=== PATIENT | male | born 1940 | race Caucasian/White ===

== ENCOUNTER 2017-10-06 05:24 | Inpatient (IN) | payer MEDICARE, BC ==
[2017-09-26 10:56] LABS: BASOPHILS % (AUTO) 0.5 % (0-1); EOSINOPHILS # (AUTO) 0.1 X10'3 (0-0.9); EOSINOPHILS % (AUTO) 1.2 % (0-6); LYMPHOCYTES # (AUTO) 0.9 X10'3 (1.1-4.8); LYMPHOCYTES % (AUTO) 20.6 % (21-51); MEAN CORPUSCULAR HEMOGLOBIN 30.7 PG (27.0-31.0); MEAN CORPUSCULAR HGB CONC 34.4 % (33.0-36.5); MEAN CORPUSCULAR VOLUME 89.2 FL (78-98); MEAN PLATELET VOLUME 8.1 FL (7.4-10.4); MONOCYTES # (AUTO) 0.2 X10'3 (0-0.9); MONOCYTES % (AUTO) 5.3 % (2-12); NEUTROPHILS # (AUTO) 3.2 X10'3 (1.8-7.7); NEUTROPHILS % (AUTO) 72.4 % (42-75); PRE OP HEMATOCRIT 43.1 % (42.0-52.0); PRE OP HEMOGLOBIN 14.8 g/dL (14.0-17.9); PRE OP PLATELET COUNT 189 X10'3 (140-440); RED BLOOD COUNT 4.83 X10'6 (4.70-6.10); RED CELL DISTRIBUTION WIDTH 12.4 % (11.5-14.5)
[2017-09-26 10:58] LABS: CLARITY,URINE CLEAR (Clear); COLOR,URINE YELLOW (Yellow); GLUCOSE, URINE NEGATIVE (Neg); KETONES,URINE NEGATIVE (Neg); LEUKOCYTE ESTERASE ,URINE NEGATIVE (Neg); NITRITES, URINE NEGATIVE (Neg); OCCULT BLOOD,URINE NEGATIVE (Neg); PROTEIN,URINE NEGATIVE (Neg); UA COLLECTION TYPE NON-SPECIFIED; UROBILINOGEN,URINE 0.2 E.U/dL (0.2-1.0)
[2017-09-26 11:04] LABS: PRE OP PROTIME 10.3 SECONDS (9.0-12.0)
[2017-09-26 11:08] LABS: ALBUMIN 3.8 G/DL (3.4-5.0); ALBUMIN/GLOBULIN RATIO 1.3 (1.1-1.5); ALKALINE PHOSPHATASE 67 IU/L (46-116); BLOOD UREA NITROGEN 18 MG/DL (7-18); CHLORIDE 107 MMOL/L (99-107); PRE OP ALT 35 U/L (30-65); PRE OP ANION GAP 9 (8-16); PRE OP AST 20 U/L (10-37); PRE OP BILIRUB, TOTAL 0.7 MG/DL (0.0-1.0); PRE OP GLUCOSE 104 MG/DL (70-104); PRE OP POTASSIUM 4.3 MMOL/L (3.4-5.1); PRE OP SODIUM 144 MMOL/L (135-145); TOTAL CARBON DIOXIDE 28.5 MMOL/L (24-32); TOTAL PROTEIN 6.8 G/DL (6.4-8.2); eGFR 72 ML/MIN
[~2017-10-06] VITALS: Ht 180.3 cm; Wt 81.6 kg
[2017-10-06] VITALS (17 sets, daily range): BP systolic 86–141; BP diastolic 50–80
[~2017-10-06 05:24] MED LIST: ACET-2119 PO; ALFU10TA10 PO; ASPI-1265 PO; CHOL100046 PO; FLUT16SP2 BOTHNARES; MELO-100 PO; ringers solution, lacted 1,000 ML IV SCH
[2017-10-06] MEDS ORDERED: famotidine 20mg tablet PO ONE (05:30)
[2017-10-06] MEDS ORDERED: acetaminophen 325mg tablet PO ONE (05:30)
[2017-10-06] MEDS ORDERED: oxyCODONE SR 10mg (sust. release) tab PO ONE (05:30)
[2017-10-06] MEDS ORDERED: vancomycin inj 1,500 MG in normal saline 300ml IV soln IV ONE (05:30)
[2017-10-06] MEDS ORDERED: cefazolin/dext.iso 2gm/50ml 50 ML IV ONE (05:30)
[2017-10-06] MEDS ORDERED: metoclopramide 5 mg/ml inj IV ONE (05:30)
[2017-10-06] MEDS ORDERED: gabapentin 300mg capsule PO ONE (05:30)
[2017-10-06] MEDS ORDERED: celeCOXIB 100mg capsule PO ONE (05:30)
[2017-10-06] MEDS ORDERED: tranexamic acid inj. 1,000 MG in normal saline 100ml IV soln 90 ML IV ONE (05:30)
[2017-10-06] MEDS ORDERED: LIDOcaine 1% (10mg/ml) 2ml vial ONE (06:15)
[2017-10-06] MEDS ORDERED: epiNEPHrine 1 mg/ml inj ONE ×2 (06:51→07:32)
[2017-10-06] MEDS ORDERED: ketorolac trometh. 30mg/ml inj. ONE (06:51)
[2017-10-06] MEDS ORDERED: vancomycin 1,000mg inj ONE (06:52)
[2017-10-06] MEDS ORDERED: ROPIVAcaine 0.5% (5mg/ml) 30ml vial ONE (06:52)
[2017-10-06] MEDS ORDERED: cloNIDine hcl/PF 100mcg/ml inj ONE ×2 (06:52→07:15)
[2017-10-06] MEDS ORDERED: sevoflurane 250ml liquid IH ONE (07:08)
[2017-10-06] MEDS ORDERED: MIDAZolam 1mg/ml 10ml vial ONE (07:17)
[2017-10-06] MEDS ORDERED: MORPHINE SULFATE/PF 0.5 MG/ML 10ML AMPUL ONE (07:18)
[2017-10-06] MEDS: potassium cl 20mEq in 1/2 NS 1,000 ML IV SCH ×3 (07:19→20:54)
[2017-10-06] MEDS ORDERED: HYDROmorphone 1 mg/ml syringe IV PRN ×2 (07:20)
[2017-10-06] MEDS ORDERED: ondansetron/PF 4mg/2ml inj IV PRN ×3 (07:20→07:35)
[2017-10-06] MEDS ORDERED: diphenhydrAMINE 25mg capsule PO PRN ×2 (07:20)
[2017-10-06] MEDS ORDERED: magnesium hydroxide 30ml (MOM) UD suspension PO PRN (07:20)
[2017-10-06] MEDS ORDERED: bisacodyl 10mg suppository rectal RC PRN (07:20)
[2017-10-06] MEDS ORDERED: acetaminophen 325mg tablet PO PRN (07:20)
[2017-10-06] MEDS ORDERED: fluticasone nasal spray 16GM bottle NS PRN (07:20)
[2017-10-06] MEDS ORDERED: ringers solution, lacted 1,000 ML IV SCH (07:33)
[2017-10-06] MEDS ORDERED: naloxone 2mg/2ml inj 1.6 MG in normal saline 500ml IV soln 500 ML IV PRN (07:33)
[2017-10-06] MEDS ORDERED: morphine 2 MG/ML inj. syringe IV PRN ×2 (07:35)
[2017-10-06] MEDS ORDERED: diphenhydrAMINE 50 mg/ml inj IV PRN (07:35)
[2017-10-06] MEDS ORDERED: meperidine/PF 25mg/ml syringe IV PRN ×2 (07:35)
[2017-10-06] MEDS ORDERED: meperidine/PF 25mg/ml syringe IV ONE (07:35)
[2017-10-06] MEDS ORDERED: propofol inj 20 ML IV ONE ×2 (07:41)
[2017-10-06] MEDS: celeCOXIB 100mg capsule PO SCH ×2 (08:00→20:00)
[2017-10-06] MEDS: vitamin D (cholecalciferol) 1,000 unit tablet PO SCH (08:00)
[2017-10-06] MEDS: multivitamins, therapeutics tablet PO SCH (08:00)
[2017-10-06] MEDS: cefazolin/dext.iso 2gm/50ml 50 ML IV SCH ×2 (08:00→16:40)
[2017-10-06] MEDS ORDERED: oxyCODONE/APAP 10/325mg tablet PO SCH (08:00)
[2017-10-06] MEDS: ascorbic acid 500mg tablet PO SCH ×2 (08:00→20:48)
[2017-10-06] MEDS: gabapentin 300mg capsule PO SCH ×3 (08:00→20:48)
[2017-10-06] MEDS ORDERED: ondansetron/PF 4mg/2ml inj ONE (08:13)
[2017-10-06] MEDS ORDERED: dexamethasone sod phosphate 4mg/ml inj. ONE (08:13)
[2017-10-06] MEDS: aspirin 325mg tablet PO SCH (08:30)
[2017-10-06] MEDS ORDERED: scopolamine 1.5mg patch.TD72 TD ONE (12:05)
[2017-10-06] MEDS: lactobacillus rhamnosus 10,000 MMU CELLS/CAPSULE PO SCH (17:45)
[2017-10-06] MEDS: tamsulosin 0.4mg capsule PO SCH (20:48)
[2017-10-06] MEDS ORDERED: alfuzosin 10MG TAB.SR.24H PO SCH (21:00)
[2017-10-06] MEDS: sennosides 8.6mg tablet PO SCH (21:00)
[2017-10-07] MEDS ORDERED: cefazolin/dext.iso 2gm/50ml 50 ML IV ONE
[2017-10-07] MEDS: cefazolin/dext.iso 2gm/50ml 50 ML IV SCH (00:15)
[2017-10-07 02:00] VITALS: BP 86/51
[2017-10-07 05:00] VITALS: BP 97/51
[2017-10-07] MEDS: oxyCODONE/APAP 10/325mg tablet PO PRN ×4 (05:28→23:53)
[2017-10-07 06:13] LABS: BASOPHILS % (AUTO) 0 % (0-1); EOSINOPHILS # (AUTO) 0.1 X10'3 (0-0.9); EOSINOPHILS % (AUTO) 1.5 % (0-6); HEMATOCRIT 34.9 % (42.0-52.0); HEMOGLOBIN 11.9 g/dl (14.0-17.9); LYMPHOCYTES # (AUTO) 0.6 X10'3 (1.1-4.8); LYMPHOCYTES % (AUTO) 6.8 % (21-51); MEAN CORPUSCULAR HEMOGLOBIN 31.1 PG (27.0-31.0); MEAN CORPUSCULAR HGB CONC 34.1 % (33.0-36.5); MEAN CORPUSCULAR VOLUME 91.1 FL (78-98); MEAN PLATELET VOLUME 8.4 FL (7.4-10.4); MONOCYTES # (AUTO) 0.6 X10'3 (0-0.9); MONOCYTES % (AUTO) 6.5 % (2-12); NEUTROPHILS # (AUTO) 8.2 X10'3 (1.8-7.7); NEUTROPHILS % (AUTO) 85.2 % (42-75); PLATELET COUNT 149 X10'3 (140-440); RED BLOOD COUNT 3.83 X10'6 (4.70-6.10); RED CELL DISTRIBUTION WIDTH 13.1 % (11.5-14.5); WHITE BLOOD COUNT 9.6 X10'3 (4.5-11.0)
[2017-10-07 06:37] LABS: ANION GAP 5 (8-16); CHLORIDE 109 MMOL/L (99-107); POTASSIUM 4.5 MMOL/L (3.5-5.1); SODIUM 140 MMOL/L (135-145)
[2017-10-07] MEDS: potassium cl 20mEq in 1/2 NS 1,000 ML IV SCH ×3 (07:52→23:19)
[2017-10-07] MEDS: celeCOXIB 100mg capsule PO SCH ×2 (07:53→20:32)
[2017-10-07] MEDS: multivitamins, therapeutics tablet PO SCH (07:53)
[2017-10-07] MEDS: lactobacillus rhamnosus 10,000 MMU CELLS/CAPSULE PO SCH ×2 (07:53→17:34)
[2017-10-07] MEDS: vitamin D (cholecalciferol) 1,000 unit tablet PO SCH (07:53)
[2017-10-07] MEDS: aspirin 325mg tablet PO SCH (07:54)
[2017-10-07] MEDS: ascorbic acid 500mg tablet PO SCH ×2 (07:54→20:32)
[2017-10-07] MEDS: gabapentin 300mg capsule PO SCH ×3 (07:54→20:32)
[2017-10-07 10:00] VITALS: BP 108/48
[2017-10-07] MEDS: Protein Shake (high protein) 240ml (8oz) cup PO SCH ×2 (14:02→18:00)
[2017-10-07 16:32] VITALS: BP 99/53
[2017-10-07 18:00] VITALS: BP 98/53
[2017-10-07] MEDS: tamsulosin 0.4mg capsule PO SCH (20:32)
[2017-10-07] MEDS: sennosides 8.6mg tablet PO SCH (20:32)
[2017-10-07 22:00] VITALS: BP 124/74
[2017-10-08] MEDS: oxyCODONE/APAP 10/325mg tablet PO PRN ×2 (05:18→09:11)
[2017-10-08 06:00] VITALS: BP 113/59
[2017-10-08 07:33] LABS: BASOPHILS % (AUTO) 0.1 % (0-1); EOSINOPHILS # (AUTO) 0.2 X10'3 (0-0.9); EOSINOPHILS % (AUTO) 2.3 % (0-6); HEMATOCRIT 33.3 % (42.0-52.0); HEMOGLOBIN 11.6 g/dl (14.0-17.9); LYMPHOCYTES # (AUTO) 0.8 X10'3 (1.1-4.8); LYMPHOCYTES % (AUTO) 11.5 % (21-51); MEAN CORPUSCULAR HEMOGLOBIN 31.4 PG (27.0-31.0); MEAN CORPUSCULAR HGB CONC 34.9 % (33.0-36.5); MEAN CORPUSCULAR VOLUME 89.7 FL (78-98); MEAN PLATELET VOLUME 8.7 FL (7.4-10.4); MONOCYTES # (AUTO) 0.5 X10'3 (0-0.9); MONOCYTES % (AUTO) 8.3 % (2-12); NEUTROPHILS # (AUTO) 5.1 X10'3 (1.8-7.7); NEUTROPHILS % (AUTO) 77.8 % (42-75); PLATELET COUNT 144 X10'3 (140-440); RED BLOOD COUNT 3.72 X10'6 (4.70-6.10); RED CELL DISTRIBUTION WIDTH 13.6 % (11.5-14.5); WHITE BLOOD COUNT 6.6 X10'3 (4.5-11.0)
[2017-10-08] MEDS: ascorbic acid 500mg tablet PO SCH (07:35)
[2017-10-08] MEDS: vitamin D (cholecalciferol) 1,000 unit tablet PO SCH (07:35)
[2017-10-08] MEDS: aspirin 325mg tablet PO SCH (07:35)
[2017-10-08] MEDS: multivitamins, therapeutics tablet PO SCH (07:35)
[2017-10-08] MEDS: lactobacillus rhamnosus 10,000 MMU CELLS/CAPSULE PO SCH (07:36)
[2017-10-08] MEDS: gabapentin 300mg capsule PO SCH (07:36)
[2017-10-08] MEDS: celeCOXIB 100mg capsule PO SCH (07:36)
[2017-10-08] MEDS: Protein Shake (high protein) 240ml (8oz) cup PO SCH (08:03)
[2017-10-08] MEDS ORDERED: ASPI-1 PO (09:09)
[2017-10-08 10:00] VITALS: BP 110/55
== END 2017-10-08 11:10 | disposition home or self-care (01) | DRG 470 ==
LOC: PAS IN 05:24 → EDSTATUS 07:30 → ORTHO 4S 11:10
PROVIDERS: ADMIT Orthopaedic Surgery; ATTEND Family Medicine
PROC: 0SRC0J9 Replacement of Right Knee Joint with Synthetic Substitute, Cemented, Open Approach (ICD-10-PCS; principal; 2017-10-06 07:08)
DX: M17.11 Unilateral primary osteoarthritis, right knee (principal); D62 Acute posthemorrhagic anemia; N40.0 Benign prostatic hyperplasia without lower urinary tract symptoms; Z79.82 Long term (current) use of aspirin; Z79.899 Other long term (current) drug therapy; Z90.49 Acquired absence of other specified parts of digestive tract
CPT/HCPCS: 36415; 71046; 73560; 73564; 80051; 80053; 81003; 85025; 85610; 85730; 86885; 86900; 86901; 87070; 97110; 97116; 97161; 97530; A6449; A6455; A7000; C1713; C1758; C1776; J0171; J0690; J0735; J1100; J1885; J2250; J2274; J2405; J2704; J2765; J2795; J3370; J3490; J7030; J7120

== ENCOUNTER 2024-04-12 18:07 | Emergency (ER) | payer MEDICARE, BC ==
[~2024-04-12] VITALS: Ht 180.3 cm; Wt 86.4 kg
[~2024-04-12 18:07] MED LIST changes: -ALFU10TA10 PO; +ALFU10TA47 PO; +ASPI-1 PO; -ASPI-1265 PO; -ringers solution, lacted 1,000 ML IV SCH
[2024-04-12 18:22] VITALS: BP 151/75; PULSE 99; TEMP 98.7; O2SAT 97
[2024-04-12 19:39] VITALS: RESP 17
== END 2024-04-12 19:56 | disposition home or self-care (01) ==
LOC: ER 18:07
DX: R60.0 Localized edema (principal); Z88.8 Allergy status to other drugs, medicaments and biological substances; Z88.1 Allergy status to other antibiotic agents; Z79.82 Long term (current) use of aspirin; Z79.899 Other long term (current) drug therapy
CPT/HCPCS: 93971; 99284